=== PATIENT | female | born 1960 | race African-American/Black ===

== ENCOUNTER 2019-05-17 11:33 | Observation (INO) ==
[2019-05-17] MEDS ORDERED: ASPIRIN 325 MG TABLET PO STA (12:20)
[2019-05-17] MEDS ORDERED: NITROGLYCERIN SL 0.4 MG TABLET SL PRN (12:20)
[2019-05-17] MEDS ORDERED: METOPROLOL TARTRATE 5 MG/5 ML VIAL IV STA (12:20)
[2019-05-17] MEDS ORDERED: ENOXAPARIN 100 MG/ML SYRINGE SUBCUT STA (12:20)
[2019-05-17 12:47] LABS: Basophils % 0.9 % (0.0-0.8); Eosinophils # 0.1 10*3/uL (0.0-0.87); Eosinophils % 2.3 % (0.00-10.9); Hematocrit 36.3 VOL% (35.7-47.0); Hemoglobin 11.9 GM/DL (12.0-16.0); Immature Granulocytes % 0.5 %; Immature Granulocytes Absolute 0.02 #; Lymphocytes # 1.5 10*3/uL (1.4-4.0); Lymphocytes % 35.1 % (21.3-54.2); Mean Corpuscular HGB Conc 32.8 GM/DL (32-36); Mean Corpuscular Volume 85.6 FL (87-102); Mean Platelet Volume 10.5 FL (9.6-12.0); Monocytes % 12.1 % (1.7-12.7); Neutrophils % 49.1 % (38.7-73.9); Platelet Count 271 T/CUMM (130-400); Red Blood Count 4.24 MC/CUMM (3.8-5.5); Red Cell Distribution Width 12.5 % (9.3-17.3); White Blood Count 4.4 T/CUMM (4-12)
[2019-05-17 13:01] LABS: Alanine Aminotransferase 29 U/L (13-56); Albumin 3.2 G/DL (3.4-5.0); Alkaline Phosphatase 116 U/L (45-117); Aspartate Amino Transferase 15 U/L (0-37); Bilirubin,Total < 0.39 MG/DL (0.2-1.0); Blood Urea Nitrogen 28 MG/DL (7-18); Calcium 9.3 MG/DL (8.5-10.1); Glucose 470 MG/DL (74-106); Osmolality,Calculated 294.2 MOS/KG (273-304); Total Protein 7.9 G/DL (6.4-8.3)
[2019-05-17] MEDS ORDERED: ONDANSETRON 4 MG/2 ML VIAL IV PRN (14:29)
[2019-05-17] MEDS ORDERED: ACETAMINOPHEN 325 MG TABLET PO PRN (14:29)
[2019-05-17] MEDS ORDERED: ENOXAPARIN 40 MG/0.4 ML SYRINGE SUBCUT SCH (14:30)
[2019-05-17] MEDS ORDERED: GLUCAGON 1 MG VIAL IM PRN (14:35)
[2019-05-17] MEDS ORDERED: DEXTROSE 50% 25 GM/50 ML VIAL IV PRN (14:35)
[2019-05-17] MEDS ORDERED: ALBUTEROL/IPRATROPIUM 3 ML NEB RESP TX PRN (14:36)
[2019-05-17] MEDS ORDERED: ALBUTEROL 2.5 MG/3 ML NEB RESP TX PRN (14:38)
[2019-05-17] MEDS ORDERED: SUMAtriptan 25 MG TABLET PO PRN (14:38)
[2019-05-17] MEDS ORDERED: SODIUM CHLORIDE 0.45% 1,000 ML IV SCH (15:00)
[2019-05-17 15:02] LABS: Risk Ratio 3.42; Thyroid Stimulating Hormone 0.137 uIU/ml (0.358-3.74); VLDL CHOLESTEROL 44.4 MG/DL
[2019-05-17] MEDS ORDERED: ALUM/MAG/SIMETH/LIDO VISC 1:1 30 ML BOTTLE PO ONE (16:08)
[2019-05-17] MEDS: amLODIPine 10 MG TABLET PO SCH (17:26)
[2019-05-17] MEDS: SODIUM CHLORIDE 0.9% 1,000 ML IV SCH (17:26)
[2019-05-17] MEDS: INSULIN REGULAR 100 UNIT/ML SUBCUT SCH ×2 (18:20→21:19)
[2019-05-17] MEDS: ALBUTEROL/IPRATROPIUM 3 ML NEB RESP TX SCH (19:33)
[2019-05-17] MEDS ORDERED: ROSUVASTATIN 20 MG TABLET PO SCH (21:00)
[2019-05-17] MEDS ORDERED: INSULIN ASPART PROTAMINE/ASPART 70/30 100 UNIT/ML SUBCUT SCH (21:00)
[2019-05-17] MEDS ORDERED: AMITRIPTYLINE 25 MG TABLET PO SCH (21:00)
[2019-05-17] MEDS: tiZANidine 4 MG TABLET PO PRN (21:19)
[2019-05-17] MEDS: LOSARTAN 25 MG TABLET PO SCH (21:19)
[2019-05-18] MEDS: ALBUTEROL/IPRATROPIUM 3 ML NEB RESP TX SCH ×3 (00:34→12:47)
[2019-05-18 04:42] LABS: Basophils % 0.8 % (0.0-0.8); Eosinophils # 0.1 10*3/uL (0.0-0.87); Eosinophils % 1.9 % (0.00-10.9); Hematocrit 36.6 VOL% (35.7-47.0); Hemoglobin 11.7 GM/DL (12.0-16.0); Immature Granulocytes % 0.2 %; Immature Granulocytes Absolute 0.01 #; Lymphocytes % 40.7 % (21.3-54.2); Mean Corpuscular Volume 87.6 FL (87-102); Mean Platelet Volume 10.7 FL (9.6-12.0); Monocytes % 14.3 % (1.7-12.7); Neutrophils % 42.1 % (38.7-73.9); Platelet Count 263 T/CUMM (130-400); Red Blood Count 4.18 MC/CUMM (3.8-5.5); Red Cell Distribution Width 12.6 % (9.3-17.3); White Blood Count 4.8 T/CUMM (4-12)
[2019-05-18 05:04] LABS: Calcium 9.2 MG/DL (8.5-10.1); Osmolality,Calculated 287.4 MOS/KG (273-304)
[2019-05-18] MEDS: SODIUM CHLORIDE 0.9% 1,000 ML IV SCH ×2 (06:13→13:19)
[2019-05-18] MEDS: POTASSIUM CHLORIDE 20 MEQ TABLET PO PRN ×2 (06:34→08:32)
[2019-05-18] MEDS: tiZANidine 4 MG TABLET PO PRN (07:25)
[2019-05-18] MEDS ORDERED: INSULIN ASPART PROTAMINE/ASPART 70/30 100 UNIT/ML SUBCUT SCH (08:17)
[2019-05-18] MEDS: INSULIN REGULAR 100 UNIT/ML SUBCUT SCH ×2 (08:31→13:19)
[2019-05-18] MEDS: amLODIPine 10 MG TABLET PO SCH (08:32)
[2019-05-18] MEDS: LOSARTAN 25 MG TABLET PO SCH (08:32)
[2019-05-18] MEDS ORDERED: ASPIRIN EC 81 MG TABLET PO SCH (09:00)
[2019-05-18] MEDS ORDERED: PANTOPRAZOLE 40 MG TABLET PO SCH (09:00)
[2019-05-18] MEDS ORDERED: ENOXAPARIN 40 MG/0.4 ML SYRINGE SUBCUT SCH (09:00)
[2019-05-18] MEDS ORDERED: KETOROLAC 15 MG/1 ML VIAL IV ONE (10:12)
[2019-05-18 12:17] VITALS: BP 104/61
== END 2019-05-18 14:38 | disposition home or self-care (01) ==
LOC: N.ED 11:33 → N.EDINP 11:33 → N.TELEN 15:55
PROVIDERS: ADMIT Internal Medicine; ATTEND Internal Medicine